=== PATIENT | female | born 1980 | race Caucasian/White ===

== ENCOUNTER 2016-06-11 17:42 | Emergency (ER) | payer SELFPAY ==
[~2016-06-11] VITALS: Ht 167.6 cm; Wt 65.8 kg
[2016-06-11] MEDS ORDERED: LORAZEPAM INJ 2 MG/ML VIAL IV ONE (18:00)
[2016-06-11] MEDS ORDERED: IV NS 0.9% 1,000 ML BAG IV ONE (18:00)
--- NOTE | 2016-06-11 18:24 | NUR ---
PT ATTEMPTED TO [facility] FROM FACILITY. IV FROM RESCUE WAS REMOVED PT ATTEMPTED TO LEAVE. BOBBY CRUZ, WAS ABLE TO TALK THE PT BACK INTO HER ER BED. 2POINT RESTRAINTS IMMEDIATELY APPLIED. TURN DOWN ATTENDANT NOW AT BEDSIDE FOR EKG.
--- NOTE | 2016-06-11 18:25 | NUR ---
PT BIB [facility] FOR ALTERED MENTATION AND LETHARGY. PT WS FOUND LYING ON STREET AND NOT VERBALLY RESPONSIVE BUT UPON ARRIVAL TO ER WAS ALERT AND ORIENTED X3 THOUGH ACTING BIZARRELY. ADMITS TO ETOH USE TODAY "A LITER AND A HALF OF VODKA". NOTED WITH SCRATCHES ON ARMS AND LEGS. DENIES SI/HI. RESP EVEN UNLABORED. DENIES PHYSICAL COMPLAINTS. IN ER BED 15 ON 2POINT RESTRAINTS.
[2016-06-11] MEDS ORDERED: IV SET PRIMARY 1 EA INFUS.SET MC ONE (18:42)
[2016-06-11] MEDS ORDERED: LORAZEPAM INJ 2 MG/ML VIAL ONE (18:42)
[2016-06-11] MEDS ORDERED: IV NS 0.9% 1,000 ML ONE (18:42)
[2016-06-11 18:50] LABS: BASOPHILS % (AUTO) 0.5 % (0.0-2.0); EOSINOPHILS # (AUTO) 0.1 /CMM (0.0-0.7); EOSINOPHILS % (AUTO) 3.2 % (0.0-6.0); HEMATOCRIT 40 % (33-45); HEMOGLOBIN 13.1 g/dL (11.5-14.8); LYMPHOCYTES # (AUTO) 1.9 /CMM (0.8-4.8); LYMPHOCYTES % (AUTO) 41.8 % (20.0-44.0); MEAN CORPUSCULAR HEMOGLOBIN 31 PG (26.0-33.0); MEAN CORPUSCULAR HGB CONC 33 g/dl (31.0-36.0); MEAN CORPUSCULAR VOLUME 93 fL (82-100); MONOCYTES # (AUTO) 0.3 /CMM (0.1-1.30); MONOCYTES % (AUTO) 5.7 % (2.0-12.0); NEUTROPHILS # (AUTO) 2.2 /CMM (1.8-8.9); NEUTROPHILS % (AUTO) 48.8 % (43.0-81.0); PLATELET COUNT (AUTO) 254 /CMM (150-450); RDW COEFFICIENT OF VARIATION 12.9 (11.5-15.0); RED BLOOD CELL COUNT(AUTO) 4.28 MIL/uL (4.0-5.2); WHITE BLOOD COUNT (AUTO) 4.5 K/uL (4.3-11.0)
[2016-06-11 18:57] LABS: CALCIUM, SERUM 7.4 mg/dL (8.5-10.1); CREATININE 0.7 mg/dL (0.6-1.3)
--- NOTE | 2016-06-11 19:01 | NUR ---
PT AGREES TO USE BEDPAN. ALLOWED IV INSERTION AND MEDICATION ADMINISTRATION. REMAINS ON 2POINT RESTRAINTS.
[2016-06-11 19:03] LABS: ALBUMIN 2.9 g/dL (3.4-5.0); BILIRUBIN,DIRECT 0.1 mg/dL (0.0-0.2); BILIRUBIN,TOTAL 0.3 mg/dL (0.2-1.0); TOTAL PROTEIN, SERUM 7.1 g/dL (6.4-8.2)
[2016-06-11 19:04] LABS: SALICYLATE 1.8 mg/dL (2.8-20.0)
--- NOTE | 2016-06-11 19:27 | NUR ---
PT UNABLE TO URINATE IN BEDPAN. URINE SAMPLE OBTAIN BY IN AND OUT CATH. TOLERATED WELL.
[2016-06-11 19:30] LABS: APPEARANCE,URINE Clear (CLEAR); BILIRUBIN,URINE Negative (NEGATIVE); BLOOD, URINE Trace-lysed Ery/uL (NEGATIVE); COLOR,URINE Yellow (YELLOW); KETONES,URINE Negative (NEGATIVE); LEUKOCYTE ESTERASE ,URINE Negative (NEGATIVE); NITRITE, URINE Negative (NEGATIVE); PROTEIN,URINE 30 mg/dl (NEGATIVE); UGLUCOSE Negative (NEGATIVE); UROBILINOGEN,URINE 0.2 EU/dL (0.2)
[2016-06-11 19:35] LABS: PHENCYCLIDINE SCREEN,URINE NEGATIVE (NEGATIVE)
[2016-06-11 19:39] LABS: CANNABINOID, URINE POSITIVE (NEGATIVE)
[2016-06-11 19:44] LABS: ADD URINE CULTURE YES; BACTERIA,URINE Many /HPF (None Seen); RBC,URINE 2-3/HPF /HPF (0-2)
[2016-06-11 19:45] LABS: SQUAMOUS EPITHELIAL CELL,UR Few /HPF (None Seen); URINE AMORPHOUS URATE Moderate /HPF (None Seen)
[2016-06-11] MEDS ORDERED: POTASSIUM CHLORIDE 20 MEQ TAB.PRT.SR PO ONE ×2 (20:00→21:05)
--- NOTE | 2016-06-11 20:22 | NUR ---
Patient is resting comfortably in bed with eyes closed. Easily aroused. VSS
[2016-06-11] MEDS ORDERED: CEPHALEXIN MONOHYDRATE 500 MG CAPSULE PO ONE ×2 (20:30→21:05)
--- NOTE | 2016-06-11 21:10 | NUR ---
PROVIDED WITH SANDWICH. PT ON 1 POINT RESTRAINT NOW. RESTING CALMLY.
--- NOTE | 2016-06-11 23:32 | NUR ---
RESTING QUIETLY, NAD NOTED. EASILY AROUSABLE. PT AGREES TO COMPLY WITH PLAN OF CARE WITHOUT FURTHER USE OF RESTRAINTS. VSS.
--- NOTE | 2016-06-12 00:07 | NUR ---
PROVIDED WITH AWTER PER REQUEST. NAD NOTED. PT REMAINS CALM AND COMPLIANT WITH STAFF. NO RESTRAINTS.
--- NOTE | 2016-06-12 00:07 | NUR ---
Cassie herndon in [place] - 06/12/16 at 0204 by HFOX REPORT GIVEN TO TAE STUBBS RN PATTI
--- NOTE | 2016-06-12 02:04 | NUR ---
REPORT GIVEN TO EONC [employer] OPERATOR FOR PATTI. RESTING COMFORTABLY, ALL NEEDS ATTENDED TO.
--- NOTE | 2016-06-12 06:15 | NUR ---
PT OK TO DISCHARGE PER DR ARIAS. IV removed. Catheter intact and site benign. Pressure and 4x4 applied to site. No bleeding noted.Patient discharged to home in stable condition. Written and verbal after care instructions given. Patient verbalizes understanding of instruction.Patient is awake and alert to self, day, and place. PT ambulatory with a steady gait
[2016-06-12 07:14] VITALS: BP 132/87
== END 2016-06-12 06:15 | disposition home or self-care (01) ==
LOC: ER 17:43
DX: R40.4 Transient alteration of awareness (principal); F19.10 Other psychoactive substance abuse, uncomplicated; S10.91XA Abrasion of unspecified part of neck, initial encounter; S40.819A Abrasion of unspecified upper arm, initial encounter; S30.810A Abrasion of lower back and pelvis, initial encounter; R45.1 Restlessness and agitation; E87.6 Hypokalemia; F10.129 Alcohol abuse with intoxication, unspecified; E83.51 Hypocalcemia; N39.0 Urinary tract infection, site not specified; F12.90 Cannabis use, unspecified, uncomplicated; R74.0 Nonspecific elevation of levels of transaminase and lactic acid dehydrogenase [LDH]; Z59.0 Homelessness; X58.XXXA Exposure to other specified factors, initial encounter; Y93.89 Activity, other specified; Y92.89 Other specified places as the place of occurrence of the external cause; Y99.8 Other external cause status
CPT/HCPCS: 36415; 80048-TC; 80076-TC; 80305; 81000-TC; 84703-TC; 85025-TC; 87086-TC; 87186-TC; A4606; G0480; G6039-TC; J2060; J7030; Z7610